=== PATIENT | male | born 1965 | race Caucasian/White ===

== ENCOUNTER 2021-09-17 09:14 | Emergency (ER) | payer OTHER ==
[~2021-09-17] VITALS: Ht 175.3 cm; Wt 118.4 kg
[2021-09-17 09:15] VITALS: BP 130/79
[2021-09-17] MEDS ORDERED: DEXAMETHASONE 10 MG/ML VIAL IM ONE (09:35)
--- NOTE | 2021-09-17 09:35 | NUR ---
56 Y/O M PRESENTS TO ED WITH THROAT AND TONGUE PAIN FOR 3 DAYS. PT STATES DIFFICULTY SWALLOWING. PT STATES HE TOOK TYLENOL AT 0600 TODAY. DENIES N/V/D; SKIN IS PINK/WARM/DRY; AAOX4 WITH EVEN AND STEADY GAIT; LUNGS CLEAR BL; HR EVEN AND REGULAR; PT DENIES ANY FEVER, CP, SOB, OR COUGH AT THIS TIME; PATIENT STATES PAIN OF 8/10 AT THIS TIME; VSS; PATIENT POSITIONED FOR COMFORT; HOB ELEVATED; BEDRAILS UP X2; BED DOWN. ER MD MADE AWARE OF PT STATUS. PMH: DENIES MED: TYLENOL NKA
[2021-09-17 10:23] LABS: BASOPHILS # (AUTO) 0.1 K/uL (0.00-0.22); BASOPHILS % (AUTO) 0.5 % (0.0-2.0); EOSINOPHILS % (AUTO) 0.1 % (0.0-4.0); LYMPHOCYTES # (AUTO) 0.4 K/uL (2.0-11.5); LYMPHOCYTES % (AUTO) 2.5 % (20.5-51.1); MEAN CORPUSCULAR HEMOGLOBIN 30 pg (27-31); MEAN CORPUSCULAR HGB CONC 35 g/dL (33-37); MEAN CORPUSCULAR VOLUME 85.8 fL (80-94); MONOCYTES # (AUTO) 1.2 K/uL (0.8-1.0); MONOCYTES % (AUTO) 6.8 % (1.7-9.3); NEUTROPHILS # (AUTO) 15.3 K/uL (1.8-7.7); NEUTROPHILS % (AUTO) 90.1 % (42.2-75.2); PLATELET COUNT (AUTO) 226 K/uL (140-450); RED BLOOD CELL COUNT(AUTO) 4.66 MIL/uL (4.20-6.10); RED CELL DISTRIBUTION WIDTH 14.2 % (11.6-13.7); WHITE BLOOD COUNT (AUTO) 16.9 K/uL (4.8-10.8)
[2021-09-17 10:26] LABS: ANION GAP 11.4 (8-16); CARBON DIOXIDE 28.3 mmol/L (21-32); CREATININE 0.7 mg/dL (0.6-1.3); POTASSIUM 3.7 mmol/L (3.5-5.1)
[2021-09-17] MEDS ORDERED: NACL 0.9% 1,000 ML IV ONE (10:45)
[2021-09-17] MEDS ORDERED: AMPICILLIN/SULBACTAM 3 GM VIAL IM ONE (11:35)
[2021-09-17] MEDS ORDERED: AMPICILLIN/SULBACTAM 3 GM VIAL ONE (11:49)
[2021-09-17] MEDS ORDERED: AMPICILLIN/SULBACTAM 3 GM in NACL 0.9% 100 ML IV ONE (11:50)
[2021-09-17] MEDS ORDERED: AMOX-1000 PO (13:01)
[2021-09-17] MEDS ORDERED: DEC4 PO (13:02)
--- NOTE | 2021-09-17 13:05 | NUR ---
PT AMBULATED TO BATHROOM WITH EVEN AND STEADY GAIT
--- NOTE | 2021-09-17 13:06 | NUR ---
PT GIVEN ORANGE JUICE FOR PO CHALLENGE
--- NOTE | 2021-09-17 13:17 | NUR ---
Patient discharged with v/s stable. Written and verbal after care instructions given and explained. Patient alert, oriented and verbalized understanding of instructions. Ambulatory with steady gait. All questions addressed prior to discharge. ID band removed. Patient advised to follow up with PMD. Rx of AUGMENTIN, DECADRON given. Patient educated on indication of medication including possible reaction and side effects. Opportunity to ask questions provided and answered.
[2021-09-17 13:23] VITALS: BP 130/79
== END 2021-09-17 13:17 | disposition home or self-care (01) ==
LOC: MED 09:14
DX: J02.9 Acute pharyngitis, unspecified (principal); Z79.899 Other long term (current) drug therapy; Z79.2 Long term (current) use of antibiotics
CPT/HCPCS: 36415; 70490; 80048; 85025; 96361; 96365; 96372; 99285; J0295; J1100; J7030